=== PATIENT | male | born 1980 | race Caucasian/White ===

== ENCOUNTER 2022-06-01 19:40 | Emergency (ER) | payer OTHER ==
[~2022-06-01] VITALS: Ht 185.4 cm; Wt 204.2 kg
[~2022-06-01 19:40] MED LIST: CORTISPORIN OTI10 ML AS; LORTAB 10 OR; LORTAB 5 OR; NO HOME MEDS; PERCOCET 5/325M1 TAB PO; TRIMOX500 MG PO; [UNRECOGNIZED DRUG - REMARK]
[2022-06-01 20:21] LABS: BASO% 0.6 % (0-3); HEMATOCRIT 48.6 % (39.0-50.0); HEMOGLOBIN 16.1 g/dl (14.0-18.0); IMMATURE GRANULOCYTES 0.1 % (0.0-5.0); LYMPH% 24.6 % (15-41); MEAN CELL VOLUME 87.4 fL CALC (80.0-100.0); MEAN CORPUSCULAR HGB CONC 33.1 g/dL CAL (32.0-36.0); MONO% 9.6 % (2-13); NEUT# 7.52 thou/uL (1.82-7.42); NEUT% 63.1 % (42-76); RED BLOOD COUNT 5.56 mill/uL (4.70-6.10); RED CELL DISTRI WIDTH 12.1 % (11.5-15.5); URINE BILIRUBIN - DIPSTICK NEGATIVE (NEGATIVE); URINE BLOOD DIPSTICK NEGATIVE (NEGATIVE); URINE COLOR YELLOW; URINE GLUCOSE - DIPSTICK 500 mg/dL (NEGATIVE); URINE KETONE NEGATIVE (NEGATIVE); URINE LEUK ESTERASE NEGATIVE (NEGATIVE); URINE PROTEIN - DIPSTICK NEGATIVE (NEG-TRACE); URINE SPECIFIC GRAVITY <=1.005; URINE UROBILINOGEN - DIPSTICK 0.2 E.U./dL (0.2)
[2022-06-01 20:22] LABS: URINE NITRITE - DIPSTICK NEGATIVE (Negative)
[2022-06-01 20:35] LABS: ALBUMIN 4.3 g/dL (3.2-5.0); ALKALINE PHOSPHATASE 88 u/l (38-126); BUN 8 mg/dL (9-20); BUN/CREATININE RATIO 9 (12-20 (CALC)); CHLORIDE 102 mmol/l (95-108); CREATININE 0.9 mg/dL (0.7-1.3); GFR FOR AFR.AMER. > 60 ML/MIN (>=60 (CALC)); GFR OTHER RACES > 60 ML/MIN (>=60 (CALC)); POTASSIUM 4.2 mmol/l (3.5-5.1); SODIUM 141 mmol/l (137-146); TOTAL PROTEIN 7.8 g/dL (6.3-8.2)
[2022-06-01 20:38] LABS: ANION GAP 11 (6-22 (CALC)); BILIRUBIN, TOTAL 0.2 mg/dL (0.2-1.3); CARBON DIOXIDE 32 mmol/l (22-30); SGOT/AST 99 u/l (17-59)
[2022-06-01 23:03] VITALS: BP 148/74
== END 2022-06-01 23:05 | DRG 313 ==
LOC: ED 19:40
PROVIDERS: Emergency Medicine
DX: R07.89 Other chest pain (principal); F41.9 Anxiety disorder, unspecified; Z20.822 Contact with and (suspected) exposure to COVID-19; F17.210 Nicotine dependence, cigarettes, uncomplicated